=== PATIENT | male | born 1960 | race Caucasian/White ===

== ENCOUNTER 2020-04-14 02:23 | Emergency (ER) | payer BC, SELFPAY ==
--- NOTE | 2020-04-14 02:24 | ECG_ITS ---
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 Measurements Intervals [place] Rate: 76 P: -19 KS: 160 QRS: -40 QRSD: 129 T: 60 QT: 381 QTc: 429 Interpretive Statements SINUS RHYTHM LEFT AXIS DEVIATION [QRS AXIS < -30] ANTEROLATERAL MYOCARDIAL INFARCTION , OF INDETERMINATE AGE [40+ ms Q WAVE IN I/aVL/V3-V6] No previous ECG available for comparison Electronically Signed On 04-14-2020 20:25:28 CDT by Asad Del Valle M.D. [id number] f
--- NOTE | 2020-04-14 02:24 | XRR_ITS ---
PROCEDURE INFORMATION: Exam: XR Chest, 1 View Exam date and time: 04/14/2020 2:25 AM Age: 59 years old Clinical indication: Other: Mid back pain; Additional info: Cp TECHNIQUE: Imaging protocol: XR of the chest Views: 1 view. COMPARISON: No relevant prior studies available. FINDINGS: Lungs: Unremarkable. No consolidation. Pleural space: Unremarkable. No pleural effusion. No pneumothorax. Heart/Mediastinum: There is a prominent hiatal hernia present. There are strandy opacities superimposed over the hiatal hernia on the right compatible with atelectasis. Bones/joints: Unremarkable. XR/XR chest 1V portable [id number] IMPRESSION: Prominent hiatal hernia with superimposing atelectasis seen in the right lung base.
[2020-04-14 02:26] VITALS: BP 129/87; PULSE 82; RESP 18; O2SAT 98; BMI 31.8
[2020-04-14 02:40] LABS: Glucose Point of Care 158 mg/dL (70-110)
--- NOTE | 2020-04-14 02:55 | ED_ITS ---
HPI - Chest Pain General: Chief Complaint: Chest Pain Stated Complaint: CP Time Seen by Provider: 04/14/20 02:30 History of Present Illness: HPI narrative: 59-year-old male with a history of coronary disease, with 2 stents placed in 2011, presents with chest discomfort that awoke him around 130 this morning. It lasted until about 2. The patient took baby aspirin x3 at home. He did not use any nitroglycerin. He was nauseated with the pain. The pain radiated into his neck. His symptoms are now resolved. He states that he has had a couple of episodes like this before. 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 Onset (ago): minute(s) (60) Timing of current episode: constant and now resolved Prior episodes: Yes Onset: during rest and awoke with symptoms Pain location: substernal Pain radiation: neck Quality: aching Relieving factors: medication-other Exacerbating factors: nothing Associated symptoms: Reports nausea; Deny abdominal pain, diaphoresis, dyspnea, fever(s), palpitations or vomiting Review of Systems Const: Denies: fever(s) or diaphoresis Eyes: Denies: change in vision ENMT: Denies: odynophagia, epistaxis, post nasal drip or sinus pain Card: Reports: chest pain; Denies: palpitations, irregular heart rhythm, edema, swelling of feet/ankles, dyspnea on exertion or orthopnea Resp: Denies: dyspnea GI: Reports: nausea; Denies: abdominal pain or vomiting : Denies: difficulty urinating or hematuria Musc: Reports: neck pain; Denies: back pain or joint redness Skin/Breast: Denies: rash or pruritus Neuro: Denies: headache(s), dizziness or vertigo Psych: Denies: anxiety PFSH ED PFSH: Medical History (Updated 04/14/20 @ 05:11 by Darrell Broussard DO) ASHD (arteriosclerotic heart disease) Diabetes Dyslipidemia Erectile dysfunction Myocardial infarction Surgical History (Updated 11/15/19 @ 16:57 by Manav Marti MD) S/P PTCA (percutaneous transluminal coronary angioplasty) Family History Father Diabetes Mother Diabetes Brother Diabetes Sister Diabetes Social History (Updated 11/15/19 @ 14:30 by Deloris French RN) Smoking and tobacco status: never smoked Alcohol intake: current Alcohol intake frequency: few times a month Household members: spouse Marital status: service: No Current occupational status: employed Physical Exam Const: GENERAL APPEARANCE: well developed ORIENTATION/CONSCIOUSNESS: Yes oriented to person, Yes oriented to place and Yes oriented to time HENMT: COMMON NORMALS: normocephalic, external ears normal and Normal external nose present HEAD & SCALP: normocephalic FACE & SINUS: normal facial exam NOSE: Normal external nose present and No nasal discharge present EXTERNAL EAR: Yes external ears normal Eye: COMMON NORMALS: Equal, round and reactive pupils present, EOMs intact bilaterally and conjunctivae normal EYELID: eyelids normal CONJUNCTIVA: Yes conjunctivae normal PUPIL: Yes Equal, round and reactive pupils present Neck/C-Spine: GENERAL: No tracheal deviation Chest: COMMONS NORMALS: normal inspection of the chest CHEST: No tenderness Resp: COMMON NORMALS: clear to auscultation bilaterally EFFORT & INSPECTION: No tachypneic, No respiratory distress, No retractions, No uses accessory muscles and No tracheal deviation AUSCULTATION: clear to auscultation bilaterally, no rhonchi, no wheezes and lung sounds not diminished Cardio: COMMON NORMALS: regular rate and regular rhythm RATE: regular rate RHYTHM: regular rhythm HEART SOUNDS: no murmurs PERIPHERAL PULSES: radial pulses present GI: INSPECTION: No abdominal distension AUSCULTATION: No Hyperactive bowel sounds present and No Hypoactive bowel sounds present PALPATION: No Guarding due to palpation present (GI) and No Rigid due to palpation PERCUSSION: no dullness to percussion and no tympanic to percussion : COMMON NORMALS: Yes no CVA tenderness BLADDER/KIDNEY EXAM: Yes no CVA tenderness Back/Pelvis: COMMON NORMALS: no CVA tenderness Neuro: SENSORIUM/ORIENTATION: Yes oriented to person, Yes oriented to place and Yes oriented to time Psych: COMMON NORMALS: mental status grossly normal Skin: COMMON NORMALS: no rashes or lesions noted GENERAL SKIN EXAM: no rashes or lesions noted Course Vital Signs: Vital signs: Vital Signs Pulse Rate 82 04/14/20 04:34 Respiratory Rate 17 04/14/20 04:34 Blood Pressure 136/78 04/14/20 04:34 Pulse Oximetry 97 04/14/20 04:34 MDM - Chest Pain MDM Narrative: Medical decision making narrative: 59-year-old male with resolved chest pain. Years ago that was stable. His hemoglobin is 15. White blood cell count 8.8. His troponin was normal, and did not elevate from baseline at 2 hours. His EKG shows a sinus rhythm with a rate in the 70s, without any ST changes. Chest x-ray showed some atelectasis in his right base with a hiatal hernia. Findings were gone over with the patient. He was offered observation admission, but chooses to go home. I think given his troponin, this is appropriate. Lab Data: Labs: Lab Results 04/14/20 04/14/20 04/14/20 Range/Units 02:30 02:30 02:30 WBC 8.8 (4.0-10.0) 10^3/ uL RBC 5.09 (4.1-5.3) 10^6/u L Hgb 14.9 (11.7-16.6) g/dL Hct 46.6 (42.0-52.0) % MCV 91.6 (80-94) fL MCH 29.3 (28.0-34.0) pg MCHC 32.0 (30.0-36.0) g/dL RDW 12.4 (12.1-15.1) % Plt Count 276 (130-400) 10^3/c mm MPV 11.0 H (7.4-10.4) fL Neut % (Auto) 47.7 % Lymph % (Auto) 39.1 % Clark % (Auto) 6.7 % Eos % (Auto) 6.0 % Baso % (Auto) 0.3 % Neut # (Auto) 4.17 (1.8-7.7) 10^3/u L Lymph # (Auto) 3.4 (0.8-4.8) 10^3/u L Clark # (Auto) 0.6 (0.2-0.9) 10^3/u L Eos # (Auto) 0.5 (0.0-0.8) 10^3/u L Baso # (Auto) 0.0 (0.0-0.1) 10^3/u L Nucleated RBC % (a uto) 0 % Nucleated RBCs # 0.0 /100WBC Sodium 140 (136-145) mmol/L Potassium 4.5 (3.5-5.1) mmol/L Chloride 104 (98-107) mmol/L Carbon Dioxide 23 (22-29) mmol/L Anion Gap 17.5 (5-19) BUN 16 (6-20) mg/dL Creatinine 1.1 (0.7-1.2) mg/dL GFR Calculation 69.0 L (90-130) mL/min Glucose 167 H (65-115) mg/dL POC Glucose (70-110) mg/dL Calculated Osmolal ity 295 (285-295) mOsm/k g Calcium 9.8 (8.5-10.5) mg/dL Total Bilirubin 0.5 (0.15-1.2) mg/dL AST 20 (0-40) U/L ALT 34 (0-41) U/L Alkaline Phosphata se 90 (40-130) IU/L Creatine Kinase 112 (39-308) U/L Troponin T Baselin e 8 (0-15) ng/L Troponin T 120 Min [place] (0-15) ng/L Delta Troponin T (0-10) ABS# NT-Pro-B Natriuret Pep 5 (0-125) pg/mL Total Protein 7.1 (6.6-8.7) g/dL Albumin 4.6 (3.5-5.2) g/dL Globulin 2.5 (1.3-4.6) g/dL 04/14/20 04/14/20 Range/Units 02:36 04:20 WBC (4.0-10.0) 10^3/ uL RBC (4.1-5.3) 10^6/u L Hgb (11.7-16.6) g/dL Hct (42.0-52.0) % MCV (80-94) fL MCH (28.0-34.0) pg MCHC (30.0-36.0) g/dL RDW (12.1-15.1) % Plt Count (130-400) 10^3/c mm MPV (7.4-10.4) fL Neut % (Auto) % Lymph % (Auto) % Clark % (Auto) % Eos % (Auto) % Baso % (Auto) % Neut # (Auto) (1.8-7.7) 10^3/u L Lymph # (Auto) (0.8-4.8) 10^3/u L Clark # (Auto) (0.2-0.9) 10^3/u L Eos # (Auto) (0.0-0.8) 10^3/u L Baso # (Auto) (0.0-0.1) 10^3/u L Nucleated RBC % (a uto) % Nucleated RBCs # /100WBC Sodium (136-145) mmol/L Potassium (3.5-5.1) mmol/L Chloride (98-107) mmol/L Carbon Dioxide (22-29) mmol/L Anion Gap (5-19) BUN (6-20) mg/dL Creatinine (0.7-1.2) mg/dL GFR Calculation (90-130) mL/min Glucose (65-115) mg/dL POC Glucose 158 (70-110) mg/dL Calculated Osmolal ity (285-295) mOsm/k g Calcium (8.5-10.5) mg/dL Total Bilirubin (0.15-1.2) mg/dL AST (0-40) U/L ALT (0-41) U/L Alkaline Phosphata se (40-130) IU/L Creatine Kinase (39-308) U/L Troponin T Baselin e (0-15) ng/L Troponin T 120 Min [place] 6.24 (0-15) ng/L Delta Troponin T -1.76 L (0-10) ABS# NT-Pro-B Natriuret Pep (0-125) pg/mL Total Protein (6.6-8.7) g/dL Albumin (3.5-5.2) g/dL Globulin (1.3-4.6) g/dL Discharge Plan Discharge Patient Disposition: Home Clinical Impression: Chest pain Qualifiers: Chest pain type: unspecified Qualified Code(s): R07.9 - Chest pain, unspecified Condition: Stable Prescriptions: No Action atorvastatin 40 mg tablet 40 mg PO DAILY RF: 0 nitroglycerin [Nitrostat] 0.4 mg tablet, sublingual 0.4 mg SUBLINGUAL Q5M PRNRF: 0 metformin 1,000 mg tablet 1,000 mg PO BID RF: 0 aspirin [Aspir-81] 81 mg tablet,delayed release (DR/EC) 162 mg PO DAILY RF: 0 sildenafil 50 mg tablet 50 mg PO DAILY PRN (Reason: sexual activity) Qty: 10 RF: 3 lisinopril 20 mg tablet 20 mg PO BID Qty: 60 RF: 3 clopidogrel 75 mg tablet 75 mg PO DAILY 90 Days Qty: 90 RF: 3 metoprolol tartrate 25 mg tablet 25 mg PO BID 90 Days Qty: 180 RF: 3 Discharge Orders: Discharge Order (Routine); Ordered 04/14/20 Ordered By: Darrell Broussard Referrals: Shubham Rebolledo DO [Primary Care Provider] - 4-7 days Patient Instructions: Chest Pain (ED) Activity Restrictions/Additional Instructions: Return to the ER for return of chest pain, shortness of breath, fever greater than 100, other concerning symptoms. Coding Level of Care Code ED Homemaking Rehabilitation Consultant for Meme Fwd Exam Comprehensive
[2020-04-14 02:56] LABS: Basophils % 0.3 %; Eosinophils # 0.5 10^3/uL (0.0-0.8); Hematocrit 46.6 % (42.0-52.0); Hemoglobin 14.9 g/dL (11.7-16.6); Lymphocytes # 3.4 10^3/uL (0.8-4.8); Lymphocytes % 39.1 %; Mean Corpuscular Hemoglobin 29.3 pg (28.0-34.0); Mean Corpuscular Volume 91.6 fL (80-94); Monocytes # 0.6 10^3/uL (0.2-0.9); Monocytes % 6.7 %; Neutrophils # 4.17 10^3/uL (1.8-7.7); Neutrophils % 47.7 %; Nucleated Red Blood Cells % 0 %; Platelet Count 276 10^3/cmm (130-400); Red Blood Count 5.09 10^6/uL (4.1-5.3); Red Cell Distribution Width 12.4 % (12.1-15.1); White Blood Count 8.8 10^3/uL (4.0-10.0)
--- NOTE | 2020-04-14 03:06 | PC.NURSE ---
pt states prior to arrival in ED, pt took [address] notified. ASA order cancelled
[2020-04-14 03:09] VITALS: BP 134/87; PULSE 79; RESP 16; O2SAT 97
[2020-04-14 03:14] LABS: Troponin(5th) Baseline 8 ng/L (0-15)
[2020-04-14 03:22] LABS: Alanine Aminotransferase 34 U/L (0-41); Albumin Level 4.6 g/dL (3.5-5.2); Alkaline Phosphatase 90 IU/L (40-130); Anion Gap 17.5 (5-19); Aspartate Amino Transferase 20 U/L (0-40); Blood Urea Nitrogen 16 mg/dL (6-20); Calcium 9.8 mg/dL (8.5-10.5); Carbon Dioxide 23 mmol/L (22-29); Chloride 104 mmol/L (98-107); Creatine Phosphokinase 112 U/L (39-308); Globulin 2.5 g/dL (1.3-4.6); Glucose 167 mg/dL (65-115); NT Pro B Type Natriuretic Pept 5 pg/mL (0-125); Osmolality Calculated 295 mOsm/kg (285-295); Potassium 4.5 mmol/L (3.5-5.1); Sodium 140 mmol/L (136-145); Total Bilirubin 0.5 mg/dL (0.15-1.2); Total Protein 7.1 g/dL (6.6-8.7)
[2020-04-14 04:34] VITALS: BP 136/78; PULSE 82; RESP 17; O2SAT 97
[2020-04-14 04:50] LABS: Troponin 5 2HR 6.24 ng/L (0-15)
[2020-04-14 04:51] LABS: Troponin 5 2HR Delta -1.76 ABS# (0-10)
[2020-04-14 05:27] VITALS: BP 125/77; PULSE 70; RESP 14; O2SAT 97
--- NOTE | 2020-04-14 05:33 | PC.NURSE ---
i agree with this assessment
== END 2020-04-14 05:34 | disposition home or self-care (01) ==
PROVIDERS: Emergency Provider Emergency Medicine; PCP Electrodiagnostic Medicine
DX: R07.9 Chest pain, unspecified (principal); Z79.02 Long term (current) use of antithrombotics/antiplatelets; Z79.82 Long term (current) use of aspirin; Z79.84 Long term (current) use of oral hypoglycemic drugs; E11.9 Type 2 diabetes mellitus without complications; E78.5 Hyperlipidemia, unspecified; I25.2 Old myocardial infarction
CPT/HCPCS: 12345; 36416; 71045; 80053; 82550; 82962; 83880; 84484; 85025; 93005; 99283; 99284

== ENCOUNTER 2020-11-08 12:13 | Outpatient (CLI) | payer BC, SELFPAY ==
[2020-11-08 12:20] VITALS: BP 124/79; PULSE 99; BMI 31.8
--- NOTE | 2020-11-08 12:29 | ECG_ITS ---
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 Interpretive Statements NAME OF STUDY: TREADMILL STRESS TEST INDICATION: [cdl clearance, ] EXERCISE DATA: The patient was exercised by Jd protocol. Baseline heart rate was 94 beats per minute. Baseline blood pressure was 150/91 millimeters of mercury. Target heart rate was 138 beats per minute. Maximum heart rate achieved was 140, which was 86% of the maximum predicted heart rate. Maximum blood pressure was 204/85 millimeters of mercury. Total exercise time was 5 minutes 56 seconds. Maximum METs achieved was 7.0, maximum VO2 was 24.5. The reason for ending the test was completion of the protocol. No ischemic symptoms were reported during the procedure ELECTROCARDIOGRAM: BASELINE: Showed sinus rhythm, normal axis, no significant ST-T changes at the baseline noted. [] EXERCISE: At the peak exercise level, [] No significant ST-T changes suggestive of ischemia noted. [] RECOVERY: During the recovery period, heart rate dropped appropriately. No significant ST-T changes in the recovery suggestive of ischemia noted. [] CONCLUSION: 1. Exercise capacity good. 2. Heart rate response was appropriate. 3. Blood pressure response was appropriate. 4. Symptoms not suggestive of ischemia. 5. Normal stress test without evidence of ischemia Electronically Signed On 11-10-2020 18:38:22 CDT by Asad Del Valle M.D. [id number]
--- NOTE | 2020-11-08 15:45 | USCV_ITS ---
Cezar Fisher Age: 60 Gender: M : 1960 Exam Date: 11/08/2020 13:18 Ordering Phys: Asad Del Valle M.D ([email or web address]) Technologist: Elian Desir Exam Location: [facility] – [place] Indication: CHEST PAIN BP: 134 / 74 HR: 82 Rhythm: Sinus Technical Quality: Adequate MEASUREMENTS (Male / Female) Normal Values 2D ECHO LV Diastolic Diameter PLAX 5.7 cm 4.2 - 5.9 / 3.9 - 5.3 cm LV Systolic Diameter PLAX 2.7 cm IVS Diastolic Thickness 0.8 cm 0.6 - 1.0 / 0.6 - 0.9 cm IVS Systolic Thickness 1.4 cm LVPW Diastolic Thickness 1.0 cm 0.6 - 1.0 / 0.6 - 0.9 cm LVPW Systolic Thickness 1.5 cm LVOT Diameter 2.2 cm LV Ejection Fraction 2D Teich 83.5 % LV Ejection Fraction MOD 2C 66.1 % LV Ejection Fraction 2C AL 66.3 % LA Diameter 3.4 cm LA Width 4.2 cm LA Height 3.7 cm RA Width 3.2 cm RA Height 3.3 cm M-MODE LV Diastolic Diameter MM 4.8 cm 4.2 - 5.9 / 3.9 - 5.3 cm LV Systolic Diameter MM 3.0 cm LV Ejection Fraction MM Teich 68.0 % IVS Diastolic Thickness MM 1.0 cm 0.6 - 1.0 / 0.6 - 0.9 cm IVS Systolic Thickness MM 1.6 cm LVPW Diastolic Thickness MM 0.9 cm 0.6 - 1.0 / 0.6 - 0.9 cm LVPW Systolic Thickness MM 1.6 cm RV Diastolic Diameter MM 1.5 cm Aortic Annulus Diameter 3.1 cm LA Ao Ratio MM 1.1 MV E Point Septal Separation 1.1 cm DOPPLER AV Peak Velocity 118.3 cm/s LVOT Peak Velocity 90.0 cm/s AV Area Cont Eq vti 3.2 cm squared AV Area Cont Eq pk 3.0 cm squared MV E' Velocity 8.0 cm/s TR Peak Velocity 155.3 cm/s TR Peak Gradient 9.7 mmHg PV Peak Velocity 83.0 cm/s FINDINGS Left Ventricle Normal left ventricular size. LV systolic function is normal with EF of 55-60%. No regional wall motion abnormalities. Normal diastolic filling pattern. Right Ventricle The right ventricle is normal in size and function. Right Atrium Not well visualized Left Atrium Not well visualized Mitral Valve Structurally normal mitral valve without significant stenosis or prolapse. There is no mitral regurgitation. Aortic Valve Grossly normal without significant sclerosis. There is no aortic regurgitation. Tricuspid Valve Structurally normal tricuspid valve without significant stenosis or regurgitation. Insufficient TR jet to calculate RVSP Pulmonic Valve Grossly normal Pericardium Normal pericardium without effusion. Aorta Normal ascending aorta dimension. CONCLUSIONS Technically limited quality study. LV systolic function is normal with EF of 55-60% Diastolic function is normal No significant valvular heart disease Compared to prior echocardiogram from 11/25/2018, no significant changes are noted Asad Del Valle MD (Electronically Signed) Final Date: 14 Nov 2020 11:48 S
== END 2020-11-08 12:14 | disposition home or self-care (01) ==
PROVIDERS: PCP Family Medicine; Visit Provider Internal Medicine
DX: I25.10 Atherosclerotic heart disease of native coronary artery without angina pectoris (principal); Z98.61 Coronary angioplasty status
CPT/HCPCS: 93017; 93306

== ENCOUNTER 2022-10-02 11:22 | Outpatient (CLI) | payer BC, SELFPAY ==
[2022-10-02 12:41] VITALS: BMI 29.8
--- NOTE | 2022-10-02 12:42 | ECG_ITS ---
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 Interpretive Statements NAME OF STUDY: TREADMILL STRESS TEST INDICATION: [DOT physical release] EXERCISE DATA: The patient was exercised by Jd protocol. Baseline heart rate was 102 beats per minute. Baseline blood pressure was 155/86 millimeters of mercury. Target heart rate was 136 beats per minute. Maximum heart rate achieved was 156, which was 114% of the target heart rate. Maximum blood pressure was 163/105 millimeters of mercury. Total exercise time was 6 minute 14 seconds. Maximum METs achieved was 10.2.The reason for ending the test was completion of the protocol. The patient complained of shortness of breath during the stress test, which then resolved at the end of the test. ELECTROCARDIOGRAM: BASELINE: Showed sinus rhythm, left axis deviation, no significant ST-T changes at the baseline noted. [] EXERCISE: At the peak exercise level, [] No significant ST-T changes suggestive of ischemia noted. [] RECOVERY: During the recovery period, heart rate dropped appropriately. No significant ST-T changes in the recovery suggestive of ischemia noted. [] CONCLUSION: 1. Exercise capacity fair 2. Heart rate response was appropriate 3. Blood pressure response was appropriate. 4. Symptoms not suggestive of ischemia. 5. Stress test is negative for ischemia. Electronically Signed On 10-16-2022 9:04:47 CDT by Asad Del Valle M.D. [id number]
== END 2022-10-02 11:23 | disposition home or self-care (01) ==
PROVIDERS: PCP Family Medicine; Visit Provider Nurse Practitioner Family
DX: Z02.4 Encounter for examination for driving license (principal); I25.2 Old myocardial infarction; I25.10 Atherosclerotic heart disease of native coronary artery without angina pectoris; I10 Essential (primary) hypertension; Z98.61 Coronary angioplasty status
CPT/HCPCS: 93017

== ENCOUNTER 2022-10-09 06:13 | Outpatient (CLI) | payer BC, SELFPAY ==
--- NOTE | 2022-10-09 06:30 | USCV_ITS ---
Cezar Fisher Age: 61 Gender: M : 1960 Exam Date: 10/09/2022 06:29 Ordering Phys: Alyssa Bernal Technologist: Exam Location[place] [facility] [place] Indication: dot physical hx of mi BP: 127 / 73 HR: 83 Rhythm: Sinus Technical Quality: Adequate MEASUREMENTS (Male / Female) Normal Values 2D ECHO LV Diastolic Diameter PLAX 4.8 cm 4.2 - 5.9 / 3.9 - 5.3 cm LV Systolic Diameter PLAX 2.9 cm IVS Diastolic Thickness 1.1 cm 0.6 - 1.0 / 0.6 - 0.9 cm IVS Systolic Thickness 1.6 cm LVPW Diastolic Thickness 1.2 cm 0.6 - 1.0 / 0.6 - 0.9 cm LVPW Systolic Thickness 1.5 cm LVOT Diameter 2.2 cm LV Ejection Fraction 2D Teich 70.8 % LV Ejection Fraction MOD 2C 68.7 % LV Ejection Fraction 2C AL 69.3 % LA Diameter 4.6 cm M-MODE Aortic Annulus Diameter 3.3 cm LA Ao Ratio MM 1.5 MV E Point Septal Separation 1.3 cm DOPPLER AV Peak Velocity 123.0 cm/s LVOT Peak Velocity 92.0 cm/s AV Area Cont Eq vti 3.2 cm squared AV Area Cont Eq pk 2.8 cm squared MV Area PHT 5.0 cm squared Mitral E to A Ratio 0.5 MV E' Velocity 36.0 cm/s Mitral E to MV E' Ratio 7.5 Mitral E to LV E' Lateral Ratio 5.7 Mitral E to LV E' Septal Ratio 11.1 TR Peak Velocity 198.3 cm/s TR Peak Gradient 15.7 mmHg TV Peak E Velocity 103.0 cm/s Right Atrial Pressure 3.0 mmHg Pulmonary Artery Systolic Pressu 18.7 mmHg RV Acceleration Time 0.2 s FINDINGS Left Ventricle Normal left ventricular size and systolic function, EF 55 %.( visual) Slightly dyskinetic basal inferior wall segment.Grade I/IV diastolic dysfunction (abnormal relaxation filling pattern), normal to mildly elevated filling pressures. Right Ventricle The right ventricle is normal in size and function. Right Atrium The right atrium is normal in size. Left Atrium The left atrium is normal in size. Mitral Valve Trace mitral valve regurgitation. Aortic Valve No gross abnormalities noted Tricuspid Valve No gross abnormalities noted Pulmonic Valve No gross abnormalities noted Pericardium Normal pericardium without effusion. Aorta Normal ascending aorta dimension. IVC The inferior vena cava appears normal. CONCLUSIONS Normal left ventricular size and systolic function, EF 55 %.( visual) Slightly dyskinetic basal inferior wall segment. Grade I/IV diastolic dysfunction (abnormal relaxation filling pattern), normal to mildly elevated filling pressures. Trace mitral valve regurgitation. Normal cardia chamber sizes. No significant distal stenotic or regurgitant valvular lesions. There is no pericardial effusion. There are no intracardiac masses. No similar previous studies are available for comparison Dr Krystal Aguilera MD FACC (Electronically Signed) Final Date: 09 October 2022 12:01 S
== END 2022-10-09 06:14 | disposition home or self-care (01) ==
PROVIDERS: PCP Family Medicine; Visit Provider Nurse Practitioner Family
DX: Z98.61 Coronary angioplasty status (principal); I21.9 Acute myocardial infarction, unspecified; I25.10 Atherosclerotic heart disease of native coronary artery without angina pectoris; I34.0 Nonrheumatic mitral (valve) insufficiency
CPT/HCPCS: 93306

== ENCOUNTER → 2024-06-15 14:17 | Outpatient (BNVA) | payer BC, SELFPAY | PROVIDERS: PCP Family Medicine; Visit Provider Internal Medicine | DX: R07.9 Chest pain, unspecified (principal); R94.31 Abnormal electrocardiogram [ECG] [EKG] | CPT/HCPCS: 93005 ==

== ENCOUNTER 2024-06-28 11:08 | Outpatient (CLI) | payer BC, SELFPAY ==
[2024-06-28 11:12] VITALS: BP 131/90; PULSE 102; BMI 31.7
--- NOTE | 2024-06-28 11:12 | ECG_ITS ---
[employer] 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 Interpretive Statements EXERCISE STRESS TEST EXERCISE DATA: The patient was exercised by Jd protocol. Baseline heart rate was 90 beats per minute. Baseline blood pressure was 139/75 millimeters of mercury. Maximal predicted heart rate [id number] beats per minute. Maximum heart rate achieved was 151 which was 94% of the maximum predicted heart rate. Maximum blood pressure was 197/78 millimeters of mercury. Total exercise time was 5 minutes. Maximum METs achieved was 7.0. The reason for ending the test was maximal effort was achieved. The patient complained of [] during the stress test, which then resolved at the end of the test. ELECTROCARDIOGRAM: BASELINE: Showed sinus rhythm, interventricular conduction delay, no significant ST-T changes at the baseline noted. [] EXERCISE: At the peak exercise level, [] No significant ST-T changes suggestive of ischemia noted. Occasional PVCs seen [] RECOVERY: During the recovery period, heart rate dropped appropriately. No significant ST-T changes in the recovery suggestive of ischemia noted. [] CONCLUSION: 1. Exercise capacity is fair 2. Heart rate response was appropriate. 3. Blood pressure response was appropriate. 4. Symptoms not suggestive of ischemia. 5. Patient has baseline interventricular conduction delay that decreases the sensitivity of the test. 6. No evidence of ischemia seen on the stress test. Electronically Signed On 06-28-2024 12:34:06 [employer] by Asad Del Valle M.D. [id number]
--- NOTE | 2024-06-28 12:27 | USCV_ITS ---
Cezar Fisher Age: 63 Gender: M : 1960 Exam Date: 06/28/2024 12:30 Ordering Phys: Dolores Zhang MD Technologist: Exam Location: [facility] Indication: cp gabg BP: / HR: 85 Rhythm: Sinus Technical Quality: Adequate MEASUREMENTS (Male / Female) Normal Values 2D ECHO LV Diastolic Diameter PLAX 4.8 cm 4.2 - 5.9 / 3.9 - 5.3 cm IVS Diastolic Thickness 1.5 cm 0.6 - 1.0 / 0.6 - 0.9 cm IVS Systolic Thickness 1.7 cm LVPW Diastolic Thickness 1.5 cm 0.6 - 1.0 / 0.6 - 0.9 cm LVPW Systolic Thickness 2.0 cm LVOT Diameter 2.5 cm LV Ejection Fraction 2D Teich 70.8 % LV Ejection Fraction MOD 4C 62.2 % LV Ejection Fraction MOD 2C 68.1 % LV Ejection Fraction 2C AL 68.7 % LA Diameter 3.9 cm RA Systolic Volume 4C AL 32.3 ml RA Systolic Volume 4C MOD 31.3 ml Aorta at Sinotubular Diameter 2.8 cm M-MODE LA Ao Ratio MM 1.1 AV Cusp Separation MM 1.9 cm DOPPLER AV Peak Velocity 118.0 cm/s LVOT Peak Velocity 83.0 cm/s AV Area Cont Eq vti 4.8 cm squared AV Area Cont Eq pk 3.4 cm squared MV Peak Velocity 90.0 cm/s MV Area PHT 5.1 cm squared Mitral E to A Ratio 0.7 TV Peak Velocity 121.0 cm/s TR Peak Velocity 149.0 cm/s TR Peak Gradient 8.9 mmHg TV Peak E Velocity 91.0 cm/s PV Peak Velocity 101.0 cm/s FINDINGS Left Ventricle Normal left ventricular size slightly diminished ejection fraction of around 50-55 %, visual. No regional wall motion abnormalities. Grade I/IV diastolic dysfunction (abnormal relaxation filling pattern), normal to mildly elevated filling pressures. Mild diffuse hypokinesia of the septum and the inferior wall segments. Slightly dyskinetic basal inferior wall. Right Ventricle The right ventricle is normal in size and function. Right Atrium The right atrium is normal in size. Left Atrium Mildly increased left atrial size. Mitral Valve Mild-moderate mitral valve regurgitation. Aortic Valve Thickened aortic valve. Tricuspid Valve No gross abnormalities noted Pulmonic Valve No gross abnormalities noted Pericardium Normal pericardium without effusion. Aorta Normal ascending aorta dimension. IVC Inferior vena cava not visualized. CONCLUSIONS Normal left ventricular size slightly diminished ejection fraction of around 50-55 %, visual. No regional wall motion abnormalities. Grade I/IV diastolic dysfunction (abnormal relaxation filling pattern), normal to mildly elevated filling pressures. Mild diffuse hypokinesia of the septum(possibly due to conduction abnormality) and the inferior wall segments. Slightly dyskinetic basal inferior wall. Mildly increased left atrial size. Mild-moderate mitral valve regurgitation. Thickened aortic valve. There is no pericardial effusion. There are no intracardiac masses. Compared to the study from 10/09/2022, there may not be a significant change Dr Krystal Aguilera MD FAC (Electronically Signed) Final Date: 30 June 2024 18:27 S
== END 2024-06-28 11:09 | disposition home or self-care (01) ==
LOC: CDL 11:11
PROVIDERS: PCP Family Medicine; Visit Provider Family Medicine
DX: I50.30 Unspecified diastolic (congestive) heart failure (principal); I25.10 Atherosclerotic heart disease of native coronary artery without angina pectoris; R07.9 Chest pain, unspecified; R06.02 Shortness of breath; I34.0 Nonrheumatic mitral (valve) insufficiency; I35.8 Other nonrheumatic aortic valve disorders
CPT/HCPCS: 93017; 93306

== ENCOUNTER 2025-01-01 13:10 | Observation (INO) | payer BC, SELFPAY ==
[2025-01-01] VITALS (12 sets, daily range): BP systolic 116–149; BP diastolic 67–96; PULSE 98–128; RESP 16–20; TEMP 36.4–37.4; O2SAT 96–100; BMI 26.0
--- NOTE | 2025-01-01 13:26 | W.ED.NAVMDI ---
HPI - Nausea/Vomiting/Diarrhea General: Chief complaint: ER Hold Stated complaint: n,v, chemo patient in [place] Time Seen by Provider: 01/01/25 13:25 History of Present Illness: 62-year-old male presents emergency room he was diagnosed earlier this year with widely metastatic prostate cancer he recently underwent radiation and he has received 1 chemo he is gotten very ill from the chemo he tells me he is not going to do any more chemo he would rather from the prostate cancer then go through chemotherapy again he has had a lot of nausea and vomiting is unable to keep anything down per his report denies hematochezia or melena. He is minimally nauseous at this time he is has some tachycardia he denies any acute pain at the moment. He states he is still having some generalized weakness since his last chemo a week ago. Associated nausea: Yes Associated symtoms: Reports fatigue, malaise and nausea; Denies chest pain or dysuria Related Data Home Medications ?Medication ?Instructions ?Recorded ?Confirmed nitroglycerin 0.4 mg sublingual 0.4 mg sublingual Q5M 11/15/19 01/01/25 tablet (Nitrostat) glipizide 5 mg tablet 5 mg PO DAILY 10/16/22 01/01/25 tamsulosin 0.4 mg capsule (Flomax) 0.4 mg PO DAILY 06/15/24 01/01/25 abiraterone 250 mg tablet 250 mg PO QID 01/01/25 01/01/25 hydrocodone 10 mg-acetaminophen 1 tab PO Q6H 01/01/25 01/01/25 325 mg tablet ondansetron 8 mg disintegrating 8 mg PO TID PRN Nausea And Vomiting 01/01/25 01/01/25 tablet prednisone 5 mg tablet 5 mg PO DAILY 01/01/25 01/01/25 prochlorperazine maleate 10 mg 10 mg PO Q6H PRN Nausea And 01/01/25 01/01/25 tablet Vomiting Previous Rx's ?Medication ?Instructions ?Recorded sildenafil 50 mg tablet 50 mg PO DAILY PRN sexual activity 01/31/21 #10 tabs atorvastatin 40 mg tablet See Rx Instructions .Route 02/25/23 .COMPLEX #90 tabs lisinopril 20 mg tablet 20 mg PO BID #180 tabs 02/25/23 metoprolol tartrate 25 mg tablet 25 mg PO BID #180 tabs 02/25/23 lorazepam 2 mg tablet (Ativan) 2 mg buccal Q6H PRN nausea and 01/01/25 vomiting #20 tabs aluminum-mag hydroxide-simethicone 30 ml PO ONCE PRN heart burn #500 01/03/25 200 mg-200 mg-20 mg/5 mL oral susp mL (Mag-Al Plus) aspirin 81 mg tablet,delayed 81 mg PO DAILY 30 days #30 tabs 01/03/25 release insulin glargine 100 unit/mL (3 10 unit (0.1 mL) SUBCUT DAILY #15 01/03/25 mL) subcutaneous pen (Lantus mL Solostar U-100 Insulin) lidocaine HCl 2 % mucosal solution 15 ml PO ONCE PRN heart burn 30 01/03/25 days #500 mL pen needle, diabetic 31 gauge x #100 ea 01/03/2507/15 (CareTouch Pen Needle) sucralfate 100 mg/mL oral 1 g (10 mL) PO ONCE PRN heart burn 01/03/25 suspension #100 mL Allergies Allergy/AdvReac Type Severity Reaction Status Date / Time No Known Allergies Allergy Verified 01/01/25 13:18 Review of Systems Const: Reports: fatigue and malaise; Denies: fever(s) or chills Card: Denies: chest pain Resp: Denies: dyspnea GI: Reports: nausea and vomiting; Denies: abdominal pain, hematemesis or coffee ground emesis : Denies: dysuria, urinary frequency or urinary urgency Musc: Denies: neck pain or back pain Skin/Breast: Denies: rash PFSH ED PFSH: Medical History GERD (gastroesophageal reflux disease) Prostate cancer metastatic to bone Erectile dysfunction Myocardial infarction ASHD (arteriosclerotic heart disease) Diabetes Dyslipidemia Surgical History S/P PTCA (percutaneous transluminal coronary angioplasty) Family History Father Diabetes Mother Diabetes Brother Diabetes Sister Diabetes Social History Smoking and tobacco/nicotine status: never used tobacco/nicotine Alcohol intake: current Alcohol intake frequency: few times a month Substance/Drug Use: never Additional social history: Patient wants DNR status as discussed with Jean-Pierre Badillo MD on 01/01/2025 with patient Yolande and daughter Hailey Household members: spouse Marital status: Marital status details: to Yolande service: No Current occupational status: employed 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 [employer] Physical Exam Const: GENERAL APPEARANCE: cooperative ORIENTATION/CONSCIOUSNESS: Yes awake, Yes oriented to person, Yes oriented to place and Yes oriented to time HENMT: COMMON NORMALS: normocephalic, atraumatic and hearing grossly normal bilaterally HEAD & SCALP: normocephalic and atraumatic Resp: COMMON NORMALS: normal respiratory effort, No retractions, No use of accessory muscles and clear to auscultation bilaterally AUSCULTATION: clear to auscultation bilaterally Cardio: COMMON NORMALS: regular rate, regular rhythm and No murmurs present (Cardio) RATE: regular rate RHYTHM: regular rhythm GI: COMMON NORMALS: Soft to palpation and No hepatosplenomegaly present AUSCULTATION: Yes normoactive bowel sounds PALPATION: Yes Soft to palpation, No Tenderness to palpation present (GI), No Guarding due to palpation present (GI) and Yes No hepatosplenomegaly present Extremity: COMMON NORMALS: normal to inspection, capillary refill normal, no clubbing, cyanosis or edema, no calf tenderness and no pedal edema Neuro: SENSORIUM/ORIENTATION: Yes oriented to person, Yes oriented to place and Yes oriented to time Skin: COMMON NORMALS: no rashes or lesions noted GENERAL SKIN EXAM: no rashes or lesions noted Course Vital Signs: Vital signs: Vital Signs Temperature 97.3 F L 01/03/25 08:00 Pulse Rate 92 01/03/25 08:00 Respiratory Rate 18 01/03/25 08:00 Blood Pressure 153/88 01/03/25 08:00 Pulse Oximetry 97 01/03/25 08:00 Oxygen Delivery Me thod Room Air 01/03/25 08:00 MDM - Nausea/Vomiting/Diarrhea Medical Decision Making Patient has leukocytopenia with absolute neutrophil count of 0.4. No finding of infection at this time. Persistent nausea and vomiting initially patient is insisting on going home ultimately was able to get the patient to agree to stay. Put on prophylactic antibiotics cussed with hospitalist orders written. Neupogen given. Medical Records I reviewed the patient's medical records. Lab Data I reviewed the patient's lab results. 01/03/25 03:21 01/03/25 03:21 Radiology Impressions Chest X-Ray 01/01/25 16:50 IMPRESSION: No acute findings. Liver Ultrasound 01/02/25 09:20 IMPRESSION: 1. Cholelithiasis without evidence for acute cholecystitis. 2. Normal liver. Laboratory Results WBC 0.91 10^3/uL (3.29-11.43) L* 01/01/25 14:00 RBC 4.20 10^6/uL (3.85-5.65) 01/01/25 14:00 Hgb 10.70 g/dL (11.27-16.99) L 01/01/25 14:00 Hct 34.4 % (37-53) L 01/01/25 14:00 MCV 81.9 fl (82-101) L 01/01/25 14:00 MCH 25.5 pg (27-33) L 01/01/25 14:00 MCHC 31.1 g/dL (30-55) 01/01/25 14:00 RDW 17.1 % (12.1-15.1) H 01/01/25 14:00 Plt Count 156 10^3/cmm (157-399) L 01/01/25 14:00 MPV 10.4 fL (7.4-10.4) 01/01/25 14:00 Lymph % (Auto) Not Reportable 01/01/25 14:00 [place] % (Auto) Not Reportable 01/01/25 14:00 Neut # (Auto) Not Reportable 01/01/25 14:00 Lymph # (Auto) Not Reportable 01/01/25 14:00 [place] # (Auto) Not Reportable 01/01/25 14:00 Total Counted 50 (0-100) 01/01/25 14:00 Atypical Lymphs % Not Reportable 01/01/25 14:00 Absolute Neutrophils 0.3 10^3/cmm (1.4-6.5) L* 01/01/25 14:00 Segmented Neutrophils 29 % 01/01/25 14:00 Band Neutrophils 7.0 % 01/01/25 14:00 Lymphocytes (Manual) 11 % 01/01/25 14:00 Monocytes (Manual) 1.0 % 01/01/25 14:00 Absolute Monocytes 0.0 10^3/cmm (0.1-0.6) L 01/01/25 14:00 Eosinophils (Manual) 2 % 01/01/25 14:00 Absolute Eosinophils 0.0 10^3/cmm (0.0-0.7) 01/01/25 14:00 Basophils (Manual) 0.0 % 01/01/25 14:00 Absolute Basophils 0.0 10^3/cmm (0.0-0.2) 01/01/25 14:00 Platelet Estimate Decreased (Normal) 01/01/25 14:00 Sodium 139 mmol/L (136-145) 01/01/25 14:00 Potassium 4.0 mmol/L (3.5-5.1) 01/01/25 14:00 Chloride 102 mmol/L (98-107) 01/01/25 14:00 Carbon Dioxide 24 mmol/L (22-29) 01/01/25 14:00 Anion Gap 17.0 (5-19) 01/01/25 14:00 BUN 12 mg/dL (8-23) 01/01/25 14:00 Creatinine 0.7 mg/dL (0.7-1.2) 01/01/25 14:00 GFR Calculation 114.3 mL/min (90-130) 01/01/25 14:00 Glucose 279 mg/dL (65-115) H 01/01/25 14:00 Calculated Osmolality 298 mOsm/kg (285-295) H 01/01/25 14:00 Calcium 8.8 mg/dL (8.5-10.5) 01/01/25 14:00 Phosphorus 1.3 mg/dL (2.5-4.5) L 01/01/25 14:00 Magnesium 2.0 mg/dL (1.7-2.3) 01/01/25 14:00 Total Bilirubin 0.8 mg/dL (0.15-1.2) 01/01/25 14:00 AST 11 U/L (0-40) 01/01/25 14:00 ALT 11 U/L (0-41) 01/01/25 14:00 Alkaline Phosphatase 2161 U/L (40-130) H* 01/01/25 14:00 Total Protein 7.2 g/dL (6.6-8.7) 01/01/25 14:00 Albumin 3.7 g/dL (3.5-5.2) 01/01/25 14:00 Globulin 3.5 g/dL (1.3-4.6) 01/01/25 14:00 Lipase 10 U/L (13-60) L 01/01/25 14:00 Prostate Specific Ag 19.310 ng/mL (0-4) H 01/01/25 14:00 TSH 0.26 uIU/mL (0.27-4.20) L 01/01/25 14:00 Urine Color Yellow (Yellow) 01/01/25 16:45 Urine Appearance Clear (CLEAR) 01/01/25 16:45 Urine pH 6.5 (5-7) 01/01/25 16:45 Ur Specific [place] 1.034 (1.005-1.030) H 01/01/25 16:45 Urine Protein Trace (Negative) A 01/01/25 16:45 Urine Glucose (UA) 3+ (Normal) H 01/01/25 16:45 Urine Ketones 1+ (Negative) H 01/01/25 16:45 Urine Blood Negative (Negative) 01/01/25 16:45 Urine Nitrate Negative (Negative) 01/01/25 16:45 Urine Bilirubin Negative (Negative) 01/01/25 16:45 Urine Urobilinogen 1.0 mg/dL (Negative) 01/01/25 16:45 Ur Leukocyte Esterase Negative (Negative) 01/01/25 16:45 Urine RBC 0-2 /hpf (0-2) 01/01/25 16:45 Urine WBC 0-5 /hpf (0-5) 01/01/25 16:45 Ur Squamous Epith Cells 0-5 /hpf (0-5) 01/01/25 16:45 Amorphous Sediment Not Reportable 01/01/25 16:45 Urine Bacteria None seen /hpf (NONE) 01/01/25 16:45 Hyaline Casts 2.46 /lpf 01/01/25 16:45 All radiology interpretation(s) finalized by discharge Discharge Plan Discharge Patient Disposition: Placed in Observation Admit Provider: Kathuria,Jess Clinical Impression: Neutropenia, Nausea & vomiting Discharge Diet: Advance as tolerated and Clear Liquid Discharge Activity: Increase activity as tolerated Coding Level of Care Code ED Roll Out Manager for Meme Naranjo
[2025-01-01 14:08] LABS: Hematocrit 34.4 % (37-53); Mean Corpuscular HGB Conc 31.1 g/dL (30-55); Mean Corpuscular Hemoglobin 25.5 pg (27-33); Mean Corpuscular Volume 81.9 fl (82-101); Mean Platelet Volume 10.4 fL (7.4-10.4); Platelet Count 156 10^3/cmm (157-399); Red Cell Distribution Width 17.1 % (12.1-15.1)
[2025-01-01] MEDS: sodium chloride 0.9% 1,000 ML 999 ML IV ×2 (14:19→15:00)
[2025-01-01] MEDS: ondansetron 2 mg/ML SDV 2 mL 4 MG IVP ×2 (14:19→19:29)
[2025-01-01 14:24] LABS: Alanine Aminotransferase 11 U/L (0-41); Albumin Level 3.7 g/dL (3.5-5.2); Aspartate Amino Transferase 11 U/L (0-40); Blood Urea Nitrogen 12 mg/dL (8-23); Calcium 8.8 mg/dL (8.5-10.5); Carbon Dioxide 24 mmol/L (22-29); Chloride 102 mmol/L (98-107); Globulin 3.5 g/dL (1.3-4.6); Glomerular Filtration Rate 114.3 mL/min (90-130); Glucose 279 mg/dL (65-115); Lipase 10 U/L (13-60); Osmolality Calculated 298 mOsm/kg (285-295); Sodium 139 mmol/L (136-145); Total Bilirubin 0.8 mg/dL (0.15-1.2); Total Protein 7.2 g/dL (6.6-8.7)
[2025-01-01 14:38] LABS: Alkaline Phosphatase 2161 U/L (40-130)
[2025-01-01 14:47] LABS: Slide Review Slide Review Perform
[2025-01-01 14:48] LABS: Absolute Segmented Neutrophil 0.3 10/cmm (1.6-7.1); Band Neutrophils Absolute 0.1 10^3/cmm (0.0-1.2); Eosinophils 2 %; Lymphocytes 11 %; Segmented Neutrophils 29 %; Total Cells Counted 50 (0-100)
[2025-01-01 14:49] LABS: Platelet Estimate Decreased (Normal)
[2025-01-01 14:51] LABS: Absolute Neutrophil 0.3 10^3/cmm (1.4-6.5); White Blood Count 0.91 10^3/uL (3.29-11.43)
--- NOTE | 2025-01-01 16:50 | XRR_ITS ---
PROCEDURE INFORMATION: Exam: XR Chest Exam date and time: 01/01/2025 4:56 PM Age: 64 years old Clinical indication: Dyspnea; Prior surgery; Surgery date: 6+ months; Surgery type: Cabg, stent; Additional info: Dyspnea/cough TECHNIQUE: Imaging protocol: Radiologic exam of the chest. Views: 1 view. COMPARISON: CR XR chest 1V portable [id number] 04/14/2020 2:38 AM FINDINGS: Lungs: Unremarkable. No consolidation or mass. Pleural spaces: Unremarkable. No pleural effusion. No pneumothorax. Heart/Mediastinum: Unremarkable. No cardiomegaly. Bones/joints: Sternal sutures are noted. XR/XR chest 1V portable [id number] IMPRESSION: No acute findings.
[2025-01-01 17:02] LABS: Bilirubin Urine Negative (Negative); Blood Urine Negative (Negative); Glucose Urine UA 3+ (Normal); Ketones Urine 1+ (Negative); Leukocyte Esterase Urine Negative (Negative); Nitrate Urine Negative (Negative); Protein Urine Trace (Negative); Urine Appearance Clear (CLEAR); Urine Color Yellow (Yellow); pH Urine 6.5 (5-7)
[2025-01-01 17:10] LABS: Add Urine Microscopic? YES; Bacteria Urine None Seen /hpf; Hyaline Casts Urine 2.46 /lpf; RBC Urine 0-2 /hpf (0-2); Squamous Epithelial Cell Urine 0-5 /hpf (0-5); WBC Urine 0-5 /hpf (0-5)
[2025-01-01 17:16] LABS: Specific Gravity, Urine 1.034 (1.005-1.030)
[2025-01-01 17:17] LABS: Add Urine Culture? No
[2025-01-01] MEDS: cefTAZidime 1,000 mg SDV 1000 MG IVP (18:20)
[2025-01-01] MEDS: filgrastim-sndz 300 mcg/0.5 mL Syringe SUBCUT (18:20)
--- NOTE | 2025-01-01 20:04 | PM.HP ---
Providers/Chief Complaint Primary Care Provider: Dolores Zhang MD Chief Complaint: n,v, chemo patient in [place] History of Present Illness Cezar Fisher is a 64 year old male with metastatic prostate cancer to the back with pain had 2 weeks of radiation therapy totaling 10 treatments plus chemotherapy the last 1 week precipitating 3 weeks of nausea. He states that he vomits 9 times out of 10 with eating and has lost 48 pounds since onset of treatment. Patient told Dr. Valencia that he is miserable enough that he does not want to do chemo and radiation anymore. Patient is accompanied by his Yolande and daughter Hailey. At this time he is mildly anxious but not actively dry heaving. He reports mild nausea. He denies pain. Patient states that radiation took care of the pain Patient denies fevers or sweating he has had some chills but denies signs of infection he denies dysuria We discussed CODE STATUS and he wants DNR Review of Systems Narrative: General Positive for 48 pounds weight loss states his PSA was 70 and most recently 22 last week. Patient denies fevers or sweating or pain he does have chills Cardiovascular no chest pain Respiratory no shortness of breath cough wheezing GI positive for nausea vomiting no diarrhea constipation no dysuria hematuria Medications/Allergies Home Medications ?Medication ?Instructions ?Recorded ?Confirmed ?Last Taken ?Type aspirin 81 mg tablet,delayed 162 mg PO DAILY 11/15/19 01/01/25 Unknown History release (Aspir-) nitroglycerin 0.4 mg sublingual 0.4 mg sublingual Q5M 11/15/19 01/01/25 Unknown History tablet (Nitrostat) metformin 1,000 mg tablet 500 mg PO BID 10/11/20 01/01/25 12/26/24 History sildenafil 50 mg tablet 50 mg PO DAILY PRN sexual activity 01/31/21 01/01/25 Unknown Rx #10 tabs glipizide 5 mg tablet 5 mg PO DAILY 10/16/22 01/01/25 12/26/24 History atorvastatin 40 mg tablet See Rx Instructions .Route 02/25/23 01/01/25 12/26/24 20:00 Rx .COMPLEX #90 tabs lisinopril 20 mg tablet 20 mg PO BID #180 tabs 02/25/23 01/01/25 12/26/24 Rx metoprolol tartrate 25 mg tablet 25 mg PO BID #180 tabs 02/25/23 01/01/25 12/26/24 Rx tamsulosin 0.4 mg capsule (Flomax) 0.4 mg PO DAILY 06/15/24 01/01/25 12/26/24 History clopidogrel 75 mg tablet See Rx Instructions .Route 08/22/24 01/01/25 12/26/24 Rx .COMPLEX #90 tabs abiraterone 250 mg tablet 250 mg PO QID 01/01/25 01/01/25 12/26/24 History hydrocodone 10 mg-acetaminophen 1 tab PO Q6H 01/01/25 01/01/25 Unknown History 325 mg tablet levofloxacin 750 mg tablet 750 mg PO DAILY 7 days #7 tabs 01/01/25 Unknown Rx lorazepam 2 mg tablet (Ativan) 2 mg buccal Q6H PRN nausea and 01/01/25 Unknown Rx vomiting #20 tabs ondansetron 8 mg disintegrating 8 mg PO TID PRN Nausea And Vomiting 01/01/25 01/01/25 12/31/24 History tablet prednisone 5 mg tablet 5 mg PO DAILY 01/01/25 01/01/25 Unknown History prochlorperazine maleate 10 mg 10 mg PO Q6H PRN Nausea And 01/01/25 01/01/25 12/31/24 History tablet Vomiting Allergies Allergy/AdvReac Type Severity Reaction Status Date / Time No Known Allergies Allergy Verified 01/01/25 13:18 PFSH Acute PFSH: Medical History (Updated 01/01/25 @ 20:11 by Jean-Pierre Badillo MD) GERD (gastroesophageal reflux disease) Prostate cancer metastatic to bone Erectile dysfunction Myocardial infarction ASHD (arteriosclerotic heart disease) Diabetes Dyslipidemia Surgical History S/P PTCA (percutaneous transluminal coronary angioplasty) Family History Father Diabetes Mother Diabetes Brother Diabetes Sister Diabetes Social History (Updated 01/01/25 @ 20:09 by Jean-Pierre Badillo MD) Smoking and tobacco/nicotine status: never used tobacco/nicotine Alcohol intake: current Alcohol intake frequency: few times a month Substance/Drug Use: never Additional social history: Patient wants DNR status as discussed with Jean-Pierre Badillo MD on 01/01/2025 with patient Yolande and daughter Hailey Household members: spouse Marital status: Marital status details: to Yolande service: No Current occupational status: employed 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 [employer] Vitals/I&O/Wt Last Vital Signs Temp 97.6 F 01/01/25 13:14 Pulse 110 H 01/01/25 19:21 Resp 16 01/01/25 19:21 BP 142/94 01/01/25 18:50 Pulse Ox 96 01/01/25 19:21 O2 Del Method Room Air 01/01/25 13:14 01/01/25 01/01/25 01/01/25 06:59 14:59 22:59 Intake Total 682.65 / 682.65 Balance 682.65 / 682.65 Weight last 48 hrs Weight 87.09 kg Physical Exam Narrative: General well-developed well-nourished male in no cardiopulmonary distress but he does have tachycardia 113 CV tachycardic rate and normal rhythm Lungs clear to auscultation bilaterally Abdomen diminished bowel tones soft nontender Calves no tenderness cords or asymmetry Mood and affect normal Skin warm and dry Carotid upstrokes normal Data 01/01/25 14:00 01/01/25 14:00 Micro: Microbiology 01/01/25 17:34 Blood Culture - Preliminary Blood SPECIMEN COLLECTED 01/01/25 17:29 Blood Culture - Preliminary Blood SPECIMEN COLLECTED A&P Assessment and plan (1) Nausea & vomiting: Will treat with Zofran and lorazepam additional LR bolus now and continue with IV fluids in the form of NS with 20 mill equivalents KCl per liter. Anticipate patient will be able to go home tomorrow morning (2) Prostate cancer metastatic to bone: Currently without pain Tylenol as ordered (3) S/P PTCA (percutaneous transluminal coronary angioplasty): Stable (4) ASHD (arteriosclerotic heart disease): History of 2 stents to the RCA in 2011+ CABG 2022 (5) Diabetes: Start sliding scale insulin hold metformin PDMP PDMP Reviewed: Not Reviewed Attestations Medical Necessity Statement*: Patient is admitted to the hospital and anticipate less than 2 midnights Coding Level of Care Code Acute Code for Chg Fwd Diagnoses Nausea & vomiting R11.2 Prostate cancer metastatic to bone C61; C79.51 S/P PTCA (percutaneous transluminal coronary angioplasty) Z98.61 ASHD (arteriosclerotic heart disease) I25.10 Diabetes E11.9 Time Spent (min) 50
[2025-01-01] MEDS: lactated ringers 1,000 ML 999 ML IV (20:57)
[2025-01-01 20:58] LABS: Glucose Point of Care 226 mg/dL (70-110)
[2025-01-01] MEDS: insulin lispro 100 unit/1 mL SUBCUT (21:16)
[2025-01-01] MEDS: pantoprazole 40 mg SDV IVP (22:58)
[2025-01-01] MEDS: sodium chlor 0.9% + KCl 20 mEq 20 MEQ/1,000 ML BAG 100 MEQ IV (23:01)
[2025-01-01 23:07] LABS: Phosphorus 1.3 mg/dL (2.5-4.5); Thyroid Stimulating Hormone 0.26 uIU/mL (0.27-4.20)
[2025-01-02] VITALS (20 sets, daily range): BP systolic 125–186; BP diastolic 73–129; PULSE 87–109; RESP 14–24; TEMP 36.9; O2SAT 85–99
--- NOTE | 2025-01-02 00:53 | PC.NURSE ---
Rounding with patient- he has had another episode of vomiting. Pt offered medications for nausea and has declined. Pt requesting an new emesis bag, which has been provided to the patient.
[2025-01-02 04:48] LABS: Hematocrit 29.4 % (37-53); Mean Corpuscular HGB Conc 31.3 g/dL (30-55); Mean Corpuscular Hemoglobin 25.3 pg (27-33); Mean Corpuscular Volume 80.8 fl (82-101); Mean Platelet Volume 10.1 fL (7.4-10.4); Platelet Count 120 10^3/cmm (157-399); Red Blood Count 3.64 10^6/uL (3.85-5.65); Red Cell Distribution Width 16.8 % (12.1-15.1)
[2025-01-02 05:13] LABS: Band Neutrophils Absolute 0.1 10^3/cmm (0.0-1.2); Eosinophils 0 %; Lymphocytes 3 %; Total Cells Counted 50 (0-100)
[2025-01-02 05:14] LABS: Absolute Segmented Neutrophil 0.3 10/cmm (1.6-7.1); Segmented Neutrophils 34 %
[2025-01-02 05:15] LABS: Platelet Estimate Decreased (Normal)
[2025-01-02 05:16] LABS: Absolute Neutrophil 0.4 10^3/cmm (1.4-6.5); White Blood Count 0.93 10^3/uL (3.29-11.43)
--- NOTE | 2025-01-02 05:18 | PC.NURSE ---
Critical lab results: WBC 0.93, Absolute Neutrophil count 0.4. Notified primary nurse, Drake Rosas.
[2025-01-02 08:04] LABS: Glucose Point of Care 229 mg/dL (70-110)
[2025-01-02] MEDS: pantoprazole 40 mg SDV IVP ×2 (08:36→17:48)
[2025-01-02] MEDS: lidocaine 2% viscous 15 ML, aluminum-mag hydrox-simethicon 30 ML, sucralfate oral liq 1 GM PO (08:44)
[2025-01-02] MEDS: sodium chlor 0.9% + KCl 20 mEq 20 MEQ/1,000 ML BAG 100 MEQ IV ×2 (09:12→21:10)
[2025-01-02] MEDS: aspirin 81 mg EC Tablet 162 MG PO (09:20)
[2025-01-02] MEDS: lisinopril 20 mg Tablet PO ×2 (09:20→17:49)
[2025-01-02] MEDS: metoprolol tartrate 25 mg Tablet PO ×2 (09:20→17:49)
[2025-01-02] MEDS: clopidogrel 75 mg Tablet PO (09:20)
--- NOTE | 2025-01-02 09:20 | US_ITS ---
WS: [id number] RIGHT UPPER QUADRANT ULTRASOUND HISTORY: assess for biliary obstruction COMPARISON: None available. Liver: 15.4 cm in length. Normal size liver and echogenicity. No bile duct dilatation or mass. Portal Vein: Normal hepatopetal flow with monophasic waveform. Gallbladder: Normally distended gallbladder with stones. No pericholecystic fluid. No gallbladder wall thickening. CBD: 0.5 cm Pancreas: Obscured by bowel gas. Right kidney: 12.2 cm in length. Normal size and echogenicity. No hydronephrosis or mass. Aorta and IVC: Unremarkable abdominal aorta and IVC. No ascites. US/US liver [id number] IMPRESSION: 1. Cholelithiasis without evidence for acute cholecystitis. 2. Normal liver.
[2025-01-02] MEDS: insulin lispro 100 unit/1 mL SUBCUT ×3 (09:21→21:10)
[2025-01-02] MEDS: scopolamine 1 mg PATCH 1 PATCH TRANSDERMA (09:53)
[2025-01-02 11:17] LABS: Estmated Average Glucose 220; Hemoglobin A1C 9.3 % (4.0-6.0)
[2025-01-02 12:15] LABS: Glucose Point of Care 191 mg/dL (70-110)
--- NOTE | 2025-01-02 12:27 | P.PN_ITS ---
Subjective 2 Subjective: Overnight labs and H&P reviewed. Patient had nausea this morning and took a while to take his morning meds. He will attempt to eat later today. Medications: Reviewed: Yes Vitals/I&O/Wt Last Vital Signs Temp 98.5 F 01/02/25 07:44 Pulse 87 01/02/25 12:00 Resp 20 H 01/02/25 10:30 BP 144/84 01/02/25 12:00 Pulse Ox 97 01/02/25 11:00 O2 Del Method Room Air 01/02/25 12:00 01/01/25 01/02/25 01/02/25 22:59 06:59 14:59 Intake Total 682.65 / 682.65 1999 2682.65 1240 / 1240 Output Total 150 / 150 Balance 682.65 / 682.65 1999 2682.65 1090 / 1090 Weight last 48 hrs Weight 89.5 kg Weight 87.09 kg Physical Exam 2 Narrative: General: No acute distress, AO x3 HEENT: PERRLA, pupils bilaterally equal and reactive, pallors not present Chest: Normal vesicular breath sounds, no added sounds, equal good air entry bilaterally CVS: S1-S2 regular, no murmurs, no tachycardia, no gallops, no rubs Abdomen: Soft, nontender, no organomegaly, bowel sounds present Neuro: No focal deficits, no facial deformity, AO x3, power 5/5 in all limbs Data 01/02/25 04:32 01/01/25 14:00 Micro: Microbiology 01/01/25 17:34 Blood Culture - Preliminary Blood SPECIMEN COLLECTED 01/01/25 17:29 Blood Culture - Preliminary Blood SPECIMEN COLLECTED A&P Assessment and plan (1) Nausea & vomiting: Will treat with Zofran and lorazepam additional LR bolus now and continue with IV fluids in the form of NS with 20 mill equivalents KCl per liter. Anticipate patient will be able to go home tomorrow morning (2) Prostate cancer metastatic to bone: Currently without pain Tylenol as ordered (3) S/P PTCA (percutaneous transluminal coronary angioplasty): Stable (4) ASHD (arteriosclerotic heart disease): History of 2 stents to the RCA in 2011+ CABG 2022 (5) Diabetes: Start sliding scale insulin hold metformin Plan Overnight labs and H&P reviewed. Patient with known metastatic prostate cancer, status post radiation to the back, chemotherapy, currently admitted with neutropenia, no fever yet. Maintained on levofloxacin prophylaxis for 7 days as an outpatient. He presented overnight due to chief complaints of intractable nausea and vomiting. Patient had been taking Prilosec at home without significant relief. States he was not able to tolerate the ODT preparation of Zofran at home. With IV antiemetics currently his nausea appears to be improving. Added a scopolamine patch today. He had a GI talk cocktail this morning which appears to help with the symptoms. Past history of hiatal hernia noted which may potentially be contributing. Continue Protonix 40 mg IV every 12 hours. Electrolytes within range this morning with continuous IV hydration. Patient states he has developed some degree of dysphagia after having received radiation to his back. While the radiation was successful with regards to back pain, he has noticed some dysphagia afterwards. At this time he is uncertain if he wants to continue any cancer treatment going forward due to adverse events. Would like some more time to think about this. In the interim he is requesting reducing his pill burden. In reviewing his chart, patient has a history of CABG in 2022. Following with that he has been maintained on aspirin 162 mg daily and Plavix 75 mg p.o. daily. He has not had any stents in the last 1 year. No history of stroke. Given the above history patient can likely come off of dual antiplatelet therapy and be maintained on aspirin 81 mg p.o. daily alone. Call placed to his outpatient supervisor of way to discuss the same. For now discontinue Plavix, changed to aspirin 81 mg p.o. daily. Patient is additionally requesting an alternate to metformin due to size of pill. 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 Discussed that we can switch metformin to the crushable form so that he is able to take it mixed with food. His HbA1c today is noted to be greater than 9. Will likely additionally add Jardiance at the time of discharge. PDMP PDMP Reviewed: Not Reviewed Attestations 2 Medical Necessity Statement*: Add scopolamine patch, continue IV antiemetics, IV Protonix, assess for oral tolerability, needs continued observation today Coding Level of Care Code Acute Code for Chg Fwd Moderate MDM includes number and complexity of problems actively addressed during encounter, amount and/or complexity of data reviewed/ordered and described risk of complication, morbidity or mortality of management as documented Diagnoses Nausea & vomiting R11.2 Prostate cancer metastatic to bone C61; C79.51 S/P PTCA (percutaneous transluminal coronary angioplasty) Z98.61 ASHD (arteriosclerotic heart disease) I25.10 Diabetes E11.9
[2025-01-02] MEDS: levoFLOXacin 750 mg Tablet PO (13:04)
[2025-01-02] MEDS: metoclopramide 5 mg/mL SDV 2 mL IVP (13:53)
[2025-01-02 17:00] LABS: Glucose Point of Care 200 mg/dL (70-110)
[2025-01-02 20:31] LABS: Glucose Point of Care 269 mg/dL (70-110)
[2025-01-03] VITALS: BP 140/81; PULSE 91; RESP 19; TEMP 37.1; O2SAT 96
[2025-01-03] MEDS: lidocaine 2% viscous 15 ML, aluminum-mag hydrox-simethicon 30 ML, sucralfate oral liq 1 GM PO (00:26)
[2025-01-03 03:32] VITALS: BP 133/72; PULSE 81; RESP 16; TEMP 37.1; O2SAT 96
[2025-01-03 03:55] LABS: Basophils % 2.1 %; Eosinophils % 2.1 %; Hematocrit 28.5 % (37-53); Lymphocytes # 0.2 10^3/uL (0.8-4.8); Lymphocytes % 25.5 %; Mean Corpuscular HGB Conc 30.5 g/dL (30-55); Mean Corpuscular Hemoglobin 24.9 pg (27-33); Mean Corpuscular Volume 81.4 fl (82-101); Mean Platelet Volume 10.6 fL (7.4-10.4); Monocytes # 0.2 10^3/uL (0.2-0.9); Monocytes % 20.2 %; Nucleated Red Blood Cells # 0.1 /100WBC; Nucleated Red Blood Cells % 9.6 %; Platelet Count 134 10^3/cmm (157-399)
[2025-01-03 04:18] LABS: Alanine Aminotransferase 10 U/L (0-41); Albumin Level 3.1 g/dL (3.5-5.2); Anion Gap 13.5 (5-19); Aspartate Amino Transferase 10 U/L (0-40); Blood Urea Nitrogen 7 mg/dL (8-23); Calcium 8.1 mg/dL (8.5-10.5); Carbon Dioxide 24 mmol/L (22-29); Chloride 106 mmol/L (98-107); Creatinine Clr Calc Pharmacy 148.7056; Globulin 2.8 g/dL (1.3-4.6); Glomerular Filtration Rate 136.5 mL/min (90-130); Glucose 189 mg/dL (65-115); Osmolality Calculated 293 mOsm/kg (285-295); Potassium 3.5 mmol/L (3.5-5.1); Sodium 140 mmol/L (136-145); Total Bilirubin 0.7 mg/dL (0.15-1.2); Total Protein 5.9 g/dL (6.6-8.7)
[2025-01-03 04:43] LABS: Neutrophils # 0.46 10^3/uL (1.8-7.7); Slide Review Slide Review Perform; White Blood Count 0.94 10^3/uL (3.29-11.43)
[2025-01-03 04:44] LABS: Alkaline Phosphatase 1653 U/L (40-130)
[2025-01-03 06:23] LABS: Glucose Point of Care 217 mg/dL (70-110)
[2025-01-03] MEDS: metoclopramide 5 mg/mL SDV 2 mL IVP (06:44)
[2025-01-03] MEDS: sodium chlor 0.9% + KCl 20 mEq 20 MEQ/1,000 ML BAG 100 MEQ IV (07:32)
[2025-01-03 08:00] VITALS: BP 153/88; PULSE 92; RESP 18; TEMP 36.3; O2SAT 97
[2025-01-03] MEDS: insulin lispro 100 unit/1 mL SUBCUT (08:24)
[2025-01-03] MEDS: pantoprazole 40 mg SDV IVP (08:24)
[2025-01-03] MEDS: filgrastim-sndz 480 mcg/0.8 mL Syringe SUBCUT (11:15)
--- NOTE | 2025-01-03 13:15 | PM.DCS ---
Discharge Providers Date of Admission: 01/01/25 19:32 Date of Discharge: January 03, 2025 Attending Provider at Admission: Jess Villa MD Attending Provider at Discharge: Jess Villa MD Primary Care Provider: Dolores Zhang MD Diagnoses at Discharge Discharge Diagnosis (1) Nausea & vomiting: Status: Acute (2) Prostate cancer metastatic to bone: Status: Acute (3) S/P PTCA (percutaneous transluminal coronary angioplasty): Status: Acute (4) ASHD (arteriosclerotic heart disease): Status: Acute (5) Diabetes: Status: Acute Reason for Visit Reason for Visit: n,v, chemo patient in [facility] Hospital Course Cezar Fisher is a 64 year old male with metastatic prostate cancer with disease to the bone, status post radiation to the back along with recent chemotherapy. Last chemo was 1 week ago. He presented to the hospital on January 01, 2025 with intractable nausea and vomiting after his last chemo treatment. He had tried to take Prilosec and some Zofran at home but this did not help as he vomited most of his medications. He was admitted in view of dehydration and inability to tolerate any p.o. intake. He started treatment with IV Zofran, IV Reglan, scopolamine patch, IV Protonix and a GI cocktail. He had some improvement in his nausea and vomiting with this intervention. He also reported a sensation of food sticking as it was going down/dysphagia which may be related to possible radiation esophagitis. Patient states that he would like to return home today as he is able to tolerate his medication and some food and follow-up with his oncologist in [place] next week. If his symptoms do not improve he will likely require endoscopic evaluation for further assessment of his dysphagia. He stated he is not interested in pursuing further chemoradiation due to the side effects he has suffered. Also requested reducing his pill burden. He is not yet ready for hospice, would like to consider hormonal therapy for palliative purposes. In keeping with these goals, his chart was extensively reviewed. Patient was noted to be on aspirin 162 mg and Plavix 75 mg daily since undergoing CABG in 2022. Case was discussed with his outpatient promotions assistant sales marketing and there does not appear to be any current indication to continue dual antiplatelet therapy. He has not had stents in the past year. Plavix was discontinued going forward. Aspirin was brought down to 81 mg p.o. daily. Atorvastatin 40 mg was continued. He requested particular dysphagia to metformin due to the pill size. We did talk about using a crushed formulation of the metformin however patient did not think he could keep up with this. Therefore he was transitioned to Lantus 10 units at bedtime. Glipizide 5 mg was continued. 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 Lisinopril was continued. Hospital course was also notable for neutropenia, likely related to chemotherapy, he received 2 doses of filgrastim on 01/01/2025 and 01/03/2025. He did not have any fever. Blood cultures were negative. His WBC count is expected to improve over the next week. Levofloxacin prophylaxis was added at discharge. Recommended to follow-up with his oncologist in [place] and his primary care provider in the next 10-14 days. His ALP was elevated > 2000, when reviewing past numbers from [facility], his ALP has been greater than 2200 in the past, most likely this is related to bony metastases. Liver ultrasound was performed to rule out any biliary obstruction and the study was negative for this possibility. He is being discharged today in a chronically ill but stable condition. Physical Exam Narrative: General: No acute distress, AO x3 HEENT: PERRLA, pupils bilaterally equal and reactive, pallors not present Chest: Normal vesicular breath sounds, no added sounds, equal good air entry bilaterally CVS: S1-S2 regular, no murmurs, no tachycardia, no gallops, no rubs Abdomen: Soft, nontender, no organomegaly, bowel sounds present Neuro: No focal deficits, no facial deformity, AO x3, power 5/5 in all limbs Discharge Data Studies Completed and Pending Completed Studies During Hospitalization Category Date Time Status XR chest 1V portable [id number] Stat Exams 01/01/25 16:50 [place] liver [id number] Routine Ultrasound 01/02/25 09:20 Completed Pending at discharge Category Date Time Status Blood Culture Stat Lab 01/01/25 17:34 Results Radiology Impressions Chest X-Ray 01/01/25 16:50 IMPRESSION: No acute findings. Liver Ultrasound 01/02/25 09:20 IMPRESSION: 1. Cholelithiasis without evidence for acute cholecystitis. 2. Normal liver. Laboratory Results WBC 0.94 10^3/uL (3.29-11.43) L* 01/03/25 03:21 RBC 3.50 10^6/uL (3.85-5.65) L 01/03/25 03:21 Hgb 8.70 g/dL (11.27-16.99) L 01/03/25 03:21 Hct 28.5 % (37-53) L 01/03/25 03:21 MCV 81.4 fl (82-101) L 01/03/25 03:21 MCH 24.9 pg (27-33) L 01/03/25 03:21 MCHC 30.5 g/dL (30-55) 01/03/25 03:21 RDW 17.0 % (12.1-15.1) H 01/03/25 03:21 Plt Count 134 10^3/cmm (157-399) L 01/03/25 03:21 MPV 10.6 fL (7.4-10.4) H 01/03/25 03:21 Neut % (Auto) 49.0 % 01/03/25 03:21 Lymph % (Auto) 25.5 % 01/03/25 03:21 [place] % (Auto) 20.2 % 01/03/25 03:21 Eos % (Auto) 2.1 % 01/03/25 03:21 Baso % (Auto) 2.1 % 01/03/25 03:21 Neut # (Auto) 0.46 10^3/uL (1.8-7.7) L* 01/03/25 03:21 Lymph # (Auto) 0.2 10^3/uL (0.8-4.8) L 01/03/25 03:21 [place] # (Auto) 0.2 10^3/uL (0.2-0.9) 01/03/25 03:21 Eos # (Auto) 0.0 10^3/uL (0.0-0.8) 01/03/25 03:21 Baso # (Auto) 0.0 10^3/uL (0.0-0.1) 01/03/25 03:21 Nucleated RBC % (auto) 9.6 % 01/03/25 03:21 Total Counted 50 (0-100) 01/02/25 04:32 Atypical Lymphs % Not Reportable 01/02/25 04:32 Absolute Neutrophils 0.4 10^3/cmm (1.4-6.5) L* 01/02/25 04:32 Segmented Neutrophils 34 % 01/02/25 04:32 Band Neutrophils 10.0 % 01/02/25 04:32 Lymphocytes (Manual) 3 % 01/02/25 04:32 Monocytes (Manual) 2.0 % 01/02/25 04:32 Absolute Monocytes 0.0 10^3/cmm (0.1-0.6) L 01/02/25 04:32 Eosinophils (Manual) 0 % 01/02/25 04:32 Absolute Eosinophils 0.0 10^3/cmm (0.0-0.7) 01/02/25 04:32 Basophils (Manual) 0.0 % 01/02/25 04:32 Absolute Basophils 0.0 10^3/cmm (0.0-0.2) 01/02/25 04:32 Metamyelocytes 2.0 % 01/02/25 04:32 Myelocytes 1.0 % 01/02/25 04:32 Nucleated RBCs # 0.1 /100WBC 01/03/25 03:21 Platelet Estimate Decreased (Normal) 01/02/25 04:32 Sodium 140 mmol/L (136-145) 01/03/25 03:21 Potassium 3.5 mmol/L (3.5-5.1) 01/03/25 03:21 Chloride 106 mmol/L (98-107) 01/03/25 03:21 Carbon Dioxide 24 mmol/L (22-29) 01/03/25 03:21 Anion Gap 13.5 (5-19) 01/03/25 03:21 BUN 7 mg/dL (8-23) L 01/03/25 03:21 Creatinine 0.6 mg/dL (0.7-1.2) L 01/03/25 03:21 GFR Calculation 136.5 mL/min (90-130) H 01/03/25 03:21 Glucose 189 mg/dL (65-115) H 01/03/25 03:21 POC Glucose 217 mg/dL (70-110) H 01/03/25 06:18 Estimat Average Glucose 220 01/02/25 04:32 Hemoglobin A1c 9.3 % (4.0-6.0) H 01/02/25 04:32 Calculated Osmolality 293 mOsm/kg (285-295) 01/03/25 03:21 Calcium 8.1 mg/dL (8.5-10.5) L 01/03/25 03:21 Phosphorus 1.3 mg/dL (2.5-4.5) L 01/01/25 14:00 Magnesium 2.0 mg/dL (1.7-2.3) 01/01/25 14:00 Total Bilirubin 0.7 mg/dL (0.15-1.2) 01/03/25 03:21 AST 10 U/L (0-40) 01/03/25 03:21 ALT 10 U/L (0-41) 01/03/25 03:21 Alkaline Phosphatase 1653 U/L (40-130) H* 01/03/25 03:21 Total Protein 5.9 g/dL (6.6-8.7) L 01/03/25 03:21 Albumin 3.1 g/dL (3.5-5.2) L 01/03/25 03:21 Globulin 2.8 g/dL (1.3-4.6) 01/03/25 03:21 Lipase 10 U/L (13-60) L 01/01/25 14:00 Prostate Specific Ag 19.310 ng/mL (0-4) H 01/01/25 14:00 TSH 0.26 uIU/mL (0.27-4.20) L 01/01/25 14:00 Urine Color Yellow (Yellow) 01/01/25 16:45 Urine Appearance Clear (CLEAR) 01/01/25 16:45 Urine pH 6.5 (5-7) 01/01/25 16:45 Ur Specific [place] 1.034 (1.005-1.030) H 01/01/25 16:45 Urine Protein Trace (Negative) A 01/01/25 16:45 Urine Glucose (UA) 3+ (Normal) H 01/01/25 16:45 Urine Ketones 1+ (Negative) H 01/01/25 16:45 Urine Blood Negative (Negative) 01/01/25 16:45 Urine Nitrate Negative (Negative) 01/01/25 16:45 Urine Bilirubin Negative (Negative) 01/01/25 16:45 Urine Urobilinogen 1.0 mg/dL (Negative) 01/01/25 16:45 Ur Leukocyte Esterase Negative (Negative) 01/01/25 16:45 Urine RBC 0-2 /hpf (0-2) 01/01/25 16:45 Urine WBC 0-5 /hpf (0-5) 01/01/25 16:45 Ur Squamous Epith Cells 0-5 /hpf (0-5) 01/01/25 16:45 Amorphous Sediment Not Reportable 01/01/25 16:45 Urine Bacteria None seen /hpf (NONE) 01/01/25 16:45 Hyaline Casts 2.46 /lpf 01/01/25 16:45 Vitals Last Vital Signs Temp 97.3 F L 01/03/25 08:00 Pulse 92 01/03/25 08:00 Resp 18 01/03/25 08:00 BP 153/88 01/03/25 08:00 Pulse Ox 97 01/03/25 08:00 O2 Del Method Room Air 01/03/25 08:00 Discharge Plan Discharge Patient Disposition: Home Condition: Stable Prescriptions: New lorazepam [Ativan] 2 mg tablet 2 mg buccal Q6H PRN (Reason: nausea and vomiting) Qty: 20 0RF aspirin 81 mg Tablet,Delayed Release (Dr/Ec) 81 mg PO DAILY 30 Days Qty: 30 0RF levofloxacin 250 mg/10 mL solution 500 mg PO DAILY 5 Days Qty: 100 0RF insulin glargine [Lantus Solostar U-100 Insulin] 100 unit/mL (3 mL) insulin pen 10 unit SUBCUT DAILY Qty: 15 0RF (DME) pen needle, diabetic [CareTouch Pen Needle] 31 gauge x 1/4 needle See Rx Instructions .Route Qty: 100 0RF Rx Instructions: As directed scopolamine base [Transderm-Scop] 1 mg over 3 days Patch 3 Day 1 patch transdermal Q3D 7 Days Qty: 3 0RF sucralfate 100 mg/mL Suspension 1 g PO ONCE PRN (Reason: heart burn) Qty: 100 0RF lidocaine HCl 2 % Solution 15 ml PO ONCE PRN (Reason: heart burn) 30 Days Qty: 500 0RF alum-mag hydroxide-simeth [Mag-Al Plus] 200-200-20 mg/5 mL Suspension 30 ml PO ONCE PRN (Reason: heart burn) Qty: 500 0RF Continued nitroglycerin [Nitrostat] 0.4 mg tablet, sublingual 0.4 mg SUBLINGUAL Q5M glipizide 5 mg tablet 5 mg PO DAILY tamsulosin [Flomax] 0.4 mg capsule 0.4 mg PO DAILY sildenafil 50 mg tablet 50 mg PO DAILY PRN (Reason: sexual activity) Qty: 10 3RF Rx Instructions: administer 30 minutes to 4 hours before activity atorvastatin 40 mg tablet See Rx Instructions .ROUTE .COMPLEX Qty: 90 3RF Dose Instruction: TAKE 1 TABLET BY MOUTH ONCE DAILY AT BEDTIME Rx Instructions: TAKE 1 TABLET BY MOUTH ONCE DAILY AT BEDTIME metoprolol tartrate 25 mg tablet 25 mg PO BID Qty: 180 3RF lisinopril 20 mg tablet 20 mg PO BID Qty: 180 3RF prednisone 5 mg tablet 5 mg PO DAILY prochlorperazine maleate 10 mg tablet 10 mg PO Q6H PRN (Reason: Nausea And Vomiting) hydrocodone-acetaminophen 10-325 mg tablet 1 tab PO Q6H ondansetron 8 mg tablet,disintegrating 8 mg PO TID PRN (Reason: Nausea And Vomiting) abiraterone 250 mg tablet 250 mg PO QID Discontinued aspirin [Aspir-81] 81 mg tablet,delayed release (DR/EC) 162 mg PO DAILY metformin 1,000 mg tablet 500 mg PO BID clopidogrel 75 mg tablet See Rx Instructions .ROUTE .COMPLEX Qty: 90 3RF Dose Instruction: Take 1 tablet by mouth once daily Rx Instructions: Take 1 tablet by mouth once daily Discharge Orders: Discharge Order (Routine); Ordered 01/03/25 Ordered By: Jess Villa Referrals: Dolores Zhang MD [Primary Care Provider, Family Practice] - 01/10/25 9:45 am Discharge Diet: Advance as tolerated and Clear Liquid Discharge Activity: Increase activity as tolerated Patient Instructions: Opioid Safety, Pain Management, Patient Portal & Brittani Instructions Activity Restrictions/Additional Instructions: Thank you for choosing [facility] for your healthcare needs today. It is very important that you follow up as instructed or that you return to the Emergency Department should you have concerns or if your condition changes or worsens in any way. You were seen in the emergency room for nausea and vomiting and given IV fluids. Your white count was also noted to be low we recommended that follow-up with your oncologist . Since you had no signs of infection cultures were done and we started you on oral antibiotics you are also given a single dose of Neupogen to stimulate your white blood cell count. If you have a fever or any signs of infection you should return immediately to the nearest emergency room. Discharge Attestations Time Spent in Discharge Care*: greater than 30 min Quality Metrics Clinical Quality Measures [ No reported AMI, CVA or VTE this stay] Coding Level of Care Code Acute Code for g Fwd Diagnoses Nausea & vomiting R11.2 Prostate cancer metastatic to bone C61; C79.51 S/P PTCA (percutaneous transluminal coronary angioplasty) Z98.61 ASHD (arteriosclerotic heart disease) I25.10 Diabetes E11.9
== END 2025-01-03 11:00 | disposition home or self-care (01) ==
LOC: ER 18:08 → ER IP 23:02 → ICU 01-02 06:03 → CSU 01-02 15:25
PROVIDERS: Emergency Medicine; Internal Medicine; Admitting Provider Student in an Organized Health Care Education/Training Program; Emergency Provider Family Medicine; PCP Family Medicine; Visit Provider Student in an Organized Health Care Education/Training Program
DX: R11.2 Nausea with vomiting, unspecified (principal); C61 Malignant neoplasm of prostate; C79.51 Secondary malignant neoplasm of bone; Z98.61 Coronary angioplasty status; I25.10 Atherosclerotic heart disease of native coronary artery without angina pectoris; E11.9 Type 2 diabetes mellitus without complications; Z79.82 Long term (current) use of aspirin; Z79.4 Long term (current) use of insulin; Z79.84 Long term (current) use of oral hypoglycemic drugs; K21.9 Gastro-esophageal reflux disease without esophagitis; I25.2 Old myocardial infarction; E78.5 Hyperlipidemia, unspecified; Z83.3 Family history of diabetes mellitus; Z66 Do not resuscitate; E86.0 Dehydration; R13.10 Dysphagia, unspecified; Z95.1 Presence of aortocoronary bypass graft; Z79.02 Long term (current) use of antithrombotics/antiplatelets; D70.9 Neutropenia, unspecified
CPT/HCPCS: 36415; 36416; 71045; 76705; 80053; 81001; 82962; 83036; 83690; 83735; 84100; 84153; 84443; 85007; 85025; 85027; 87040; 96361; 96372; 96374; 96375; 96376; 99285; G0378; J0713; J1815; J2405; J2470; J2765; J3480; J7030; J7120; J9999; Q5101

== ENCOUNTER 2025-03-04 17:23 | Emergency (ER) | payer BC, SELFPAY ==
[2025-03-04 17:28] VITALS: BP 185/111; PULSE 121; RESP 18; TEMP 36.9; O2SAT 98; BMI 30.1
--- NOTE | 2025-03-04 18:05 | W.ED.URI ---
HPI - URI/Sore Throat General: Chief Complaint: Upper Respiratory Infection Stated Complaint: Covid+(home test) Time Seen by Provider: 03/04/25 17:25 History of Present Illness: Not seen Related Data Home Medications ?Medication ?Instructions ?Recorded ?Confirmed nitroglycerin 0.4 mg sublingual 0.4 mg sublingual Q5M 11/15/19 03/04/25 tablet (Nitrostat) glipizide 5 mg tablet 5 mg PO DAILY 10/16/22 03/04/25 tamsulosin 0.4 mg capsule (Flomax) 0.4 mg PO DAILY 06/15/24 03/04/25 abiraterone 250 mg tablet 250 mg PO QID 01/01/25 03/04/25 hydrocodone 10 mg-acetaminophen 1 tab PO Q6H 01/01/25 03/04/25 325 mg tablet ondansetron 8 mg disintegrating 8 mg PO TID PRN Nausea And Vomiting 01/01/25 03/04/25 tablet prednisone 5 mg tablet 5 mg PO DAILY 01/01/25 03/04/25 prochlorperazine maleate 10 mg 10 mg PO Q6H PRN Nausea And 01/01/25 03/04/25 tablet Vomiting Previous Rx's ?Medication ?Instructions ?Recorded sildenafil 50 mg tablet 50 mg PO DAILY PRN sexual activity 01/31/21 #10 tabs atorvastatin 40 mg tablet See Rx Instructions .Route 02/25/23 .COMPLEX #90 tabs lisinopril 20 mg tablet 20 mg PO BID #180 tabs 02/25/23 metoprolol tartrate 25 mg tablet 25 mg PO BID #180 tabs 02/25/23 lorazepam 2 mg tablet (Ativan) 2 mg buccal Q6H PRN nausea and 01/01/25 vomiting #20 tabs aluminum-mag hydroxide-simethicone 30 ml PO ONCE PRN heart burn #500 01/03/25 200 mg-200 mg-20 mg/5 mL oral susp mL (Mag-Al Plus) insulin glargine 100 unit/mL (3 10 unit (0.1 mL) SUBCUT DAILY #15 01/03/25 mL) subcutaneous pen (Lantus mL Solostar U-100 Insulin) pen needle, diabetic 31 gauge x #100 ea 01/03/2507/15 (CareTouch Pen Needle) sucralfate 100 mg/mL oral 1 g (10 mL) PO ONCE PRN heart burn 01/03/25 suspension #100 mL Allergies Allergy/AdvReac Type Severity Reaction Status Date / Time No Known Allergies Allergy Verified 03/04/25 18:25 [facility] ED PFSH: Medical History GERD (gastroesophageal reflux disease) Prostate cancer metastatic to bone Erectile dysfunction Myocardial infarction ASHD (arteriosclerotic heart disease) Diabetes Dyslipidemia Surgical History S/P PTCA (percutaneous transluminal coronary angioplasty) Family History Father Diabetes Mother Diabetes Brother Diabetes Sister Diabetes Social History Smoking and tobacco/nicotine status: never used tobacco/nicotine Alcohol intake: current Alcohol intake frequency: few times a month Substance/Drug Use: never Additional social history: Patient wants DNR status as discussed with Jean-Pierre Badillo MD on 01/01/2025 with patient Yolande and daughter Hailey Household members: spouse Marital status: Marital status details: to [employer]ande service: No Current occupational status: employed 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
== END 2025-03-04 18:16 | disposition left against medical advice (07) ==
PROVIDERS: Emergency Provider Family Medicine; PCP Family Medicine
DX: Z53.21 Procedure and treatment not carried out due to patient leaving prior to being seen by health care provider (principal); R06.02 Shortness of breath
CPT/HCPCS: 87400; 87426